=== PATIENT | female | born 1970 | race American Indian/Alaskan Native ===

== ENCOUNTER 2019-07-08 11:21 | Outpatient (CLI) | payer BC ==
--- NOTE | 2019-07-08 12:46 | Ultrasound Report ---
COMPLETE BILATERAL BREAST ULTRASOUND HISTORY: Bilateral breast pain. COMPARISON: None available. She has had a negative mammogram elsewhere within the last year. FINDINGS: Ultrasound of the right breast was performed in the area of pain from 12:00 to 3:00 and dem onstrated normal structures with no mass, cyst or shadowing. Complete sonographic evaluation of the left breast including imaging of the four quadrants and subare olar areas was performed. Several anechoic cysts of the upper inner quadrant with the largest at 11:0 0 9 cm from the nipple measuring 1.0 x 0.5 x 0.7 cm. Several additional smaller cysts. Some of the cy sts demonstrate shadowing. No solid mass or suspicious shadowing. IMPRESSION: 1. Negative right breast. 2. Several benign cysts of the upper inner right breast. The shadowing suggest that these are benign oil cysts associated with fat necrosis. If the clinical examination remains stable, the patient should continue an annual screening mammograp hic evaluation schedule. BIRADS 2: Benign Signer Name: Meet Ibrahim MD Signed: 07/08/2019 12:41 PM Workstation Name: [id number]
== END 2019-07-08 11:22 | disposition home or self-care (01) ==
LOC: SPVWC 11:21
PROVIDERS: ATTEND Surgery
DX: N60.01 Solitary cyst of right breast (principal); N64.4 Mastodynia

== ENCOUNTER 2019-08-07 09:20 | Outpatient (CLI) | payer BC | END 2019-08-07 09:21 | disposition home or self-care (01) | LOC: LABHHL 09:20 | PROVIDERS: ATTEND Surgery | DX: N60.02 Solitary cyst of left breast (principal) | CPT/HCPCS: 88112 ==